=== PATIENT | female | born 1980 | race Caucasian/White ===

== ENCOUNTER 2018-10-01 10:03 | Day surgery (SDC) | payer BC ==
[~2018-10-01 10:03] MED LIST: Lactated Ringers 1,000 ML IV SCH; Sodium Chloride 0.9% 10 ML SDV IV PRN; Sodium Chloride 0.9% 10 ML Syringe FLUSH PRN; Sodium Chloride 0.9% 2.5 ML Syringe FLUSH PRN
[2018-10-01] MEDS ORDERED: Propofol 200 MG/20 ML SDV ONE ×2 (11:13→12:11)
[2018-10-01] MEDS ORDERED: Midazolam 1 MG/ML 2 ML SDV ONE (11:13)
[2018-10-01] MEDS ORDERED: fentaNYL 100 MCG/2 ML SDV ONE ×2 (11:13→12:45)
[2018-10-01] MEDS ORDERED: Ondansetron 4 MG/2 ML SDV ONE ×2 (11:14→13:00)
--- NOTE | 2018-10-01 12:01 | PCM.PREANE ---
Preanesthetic Assessment - Anesthesia/Transfusion/Family Hx Anesthesia History: Prior Anesthesia Without Reaction Family History of Anesthesia Reaction: No Transfusion History: No Prior Transfusion(s) Intubation History: Unknown - Review of Systems General: No Symptoms Pulmonary: No Symptoms Cardiovascular: No Symptoms Gastrointestinal: No Symptoms Neurological: No Symptoms Other: Reports: None - Physical Assessment O2 Sat by Pulse Oximetry: 96 Respiratory Rate: 16 Vital Signs: Last Vital Signs Temp 36.2 C 10/01/18 10:42 Pulse 68 10/01/18 10:42 Resp 16 10/01/18 10:42 BP 112/76 10/01/18 10:42 Pulse Ox 96 10/01/18 10:42 Height: 1.6 m Weight: 63.049 kg ASA Class: 1 Mental Status: Alert & Oriented x3 Airway Class: Mallampati = 1 Dentition: Reports: Normal Dentition Thyro-Mental Finger Breadths: 3 Mouth Opening Finger Breadths: 3 ROM/Head Extension: Full Lungs: Clear to Auscultation, Normal Respiratory Effort Cardiovascular: Regular Rate, Regular Rhythm - Lab Values: Laboratory Last Values WBC 7.01 K/uL (4.0-11.0) 10/01/18 11:00 RBC 4.72 M/uL (4.30-5.90) 10/01/18 11:00 Hgb 14.6 g/dL (12.0-16.0) 10/01/18 11:00 Hct 42.3 % (36.0-46.0) 10/01/18 11:00 MCV 89.6 fL (80.0-98.0) 10/01/18 11:00 MCH 30.9 pg (27.0-32.0) 10/01/18 11:00 MCHC 34.5 g/dL (31.0-37.0) 10/01/18 11:00 RDW Std Deviation 42.2 fl (28.0-62.0) 10/01/18 11:00 RDW Coeff of Hillary 13 % (11.0-15.0) 10/01/18 11:00 Plt Count 275 K/uL (150-400) 10/01/18 11:00 MPV 11.00 fL (7.40-12.00) 10/01/18 11:00 Neut % (Auto) 56.1 % (48.0-80.0) 10/01/18 11:00 Lymph % (Auto) 32.2 % (16.0-40.0) 10/01/18 11:00 [place] % (Auto) 7.6 % (0.0-15.0) 10/01/18 11:00 Eos % (Auto) 3.4 % (0.0-7.0) 10/01/18 11:00 Baso % (Auto) 0.7 % (0.0-1.5) 10/01/18 11:00 Neut # (Auto) 3.9 K/uL (1.4-5.7) 10/01/18 11:00 Lymph # (Auto) 2.3 K/uL (0.6-2.4) 10/01/18 11:00 [place] # (Auto) 0.5 K/uL (0.0-0.8) 10/01/18 11:00 Eos # (Auto) 0.2 K/uL (0.0-0.7) 10/01/18 11:00 Baso # (Auto) 0.1 K/uL (0.0-0.1) 10/01/18 11:00 Nucleated RBC % 0.0 /100WBC 10/01/18 11:00 Nucleated RBCs # 0 K/uL 10/01/18 11:00 - Allergies Allergies/Adverse Reactions: Allergies Allergy/AdvReac Type Severity Reaction Status Date / Time No Known Allergies Allergy Verified 09/25/18 09:22 - Blood Blood Available: No - Anesthesia Plan Pre-Op Medication Ordered: None - Acknowledgements Anesthesia Type Planned: MAC Pt an Appropriate Candidate for the Planned Anesthesia: Yes Alternatives and Risks of Anesthesia Discussed w Pt/Guardian: Yes Pt/Guardian Understands and Agrees with Anesthesia Plan: Yes PreAnesthesia Questionnaire HEENT History: Reports: None Cardiovascular History: Reports: None Respiratory History: Reports: None Gastrointestinal History: Reports: None Genitourinary History: Reports: None FLUTE GRINDER History: Reports: Musculoskeletal History: Reports: None Neurological History: Reports: Other (See Below) Other Neuro History: febrile seizures as a child Psychiatric History: Reports: Anxiety Endocrine/Metabolic History: Reports: None Hematologic History: Reports: None Immunologic History: Reports: None Oncologic (Cancer) History: Reports: None Dermatologic History: Reports: None - Past Surgical History Head Surgeries/Procedures: Reports: None HEENT Surgical History: Reports: Adenoidectomy, Oral Surgery, Tonsillectomy Cardiovascular Surgical History: Reports: None Respiratory Surgical History: Reports: None GI Surgical History: Reports: None Female Surgical History: Reports: D&C, Other (See Below) Other Female Surgeries/Procedures: ETOP Endocrine Surgical History: Reports: None Neurological Surgical History: Reports: None Musculoskeletal Surgical History: Reports: None Oncologic Surgical History: Reports: None Dermatological Surgical History: Reports: None Other Surgical History Comment: left wrist ganglion cyst - SUBSTANCE USE Smoking Status *Q: Former Smoker (quit 4 weeks ago) Tobacco Use Within Last Twelve Months: Cigarettes - HOME MEDS Home Medications: Home Meds . [No Known Home Meds] 09/25/18 [History] - CURRENT (IN HOUSE) MEDS Current Meds: Current Medications Lactated Ringer's (Ringers, Lactated) 1,000 mls @ 125 mls/hr IV ASDIRECTED JULI Sodium Chloride (Saline Flush) 10 ml FLUSH ASDIRECTED PRN PRN Reason: Keep Vein Open Sodium Chloride (Saline Flush) 2.5 ml FLUSH ASDIRECTED PRN PRN Reason: Keep Vein Open Sodium Chloride (Normal Saline) 10 ml IV ASDIRECTED PRN PRN Reason: IV Use Discontinued Medications Fentanyl (Sublimaze) Confirm Administered Dose 100 mcg .ROUTE .STK-MED ONE Stop: 10/01/18 11:14 Lidocaine HCl (Xylocaine-Mpf 1%) Confirm Administered Dose 5 mls @ as directed .ROUTE .STK-MED ONE Stop: 10/01/18 11:15 Midazolam HCl (Versed 1 Mg/Ml) Confirm Administered Dose 2 mg .ROUTE .STK-MED ONE Stop: 10/01/18 11:14 Ondansetron HCl (Zofran) Confirm Administered Dose 4 mg .ROUTE .STK-MED ONE Stop: 10/01/18 11:15 Propofol (Diprivan 20 Ml) Confirm Administered Dose 200 mg .ROUTE .STK-MED ONE Stop: 10/01/18 11:14
[2018-10-01] MEDS ORDERED: Meperidine PF 25 MG/ML Syringe IVPUSH ONE (12:51)
[2018-10-01] MEDS ORDERED: HYDROmorphone 2 MG/ML SDV IVPUSH ONE (12:51)
[2018-10-01] MEDS ORDERED: Promethazine 25 MG/ML SDV IM ONE (12:51)
[2018-10-01] MEDS ORDERED: fentaNYL 100 MCG/2 ML SDV IVPUSH PRN (12:51)
[2018-10-01] MEDS ORDERED: Ketorolac 30 MG/ML SDV ONE (13:00)
--- NOTE | 2018-10-01 13:15 | PCM.OPNOTE ---
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 Patient had minimal blood loss. Two pathology specimens were sent. <Jose Hardin - Last Filed: 10/02/18 03:24> - General Post-Op/Procedure Note Findings: EUA showed normal sized uterus. Cervix appeared partulous Free Text/Narrative:: Intake & Output 10/01/18 10/01/18 10/02/18 14:59 22:59 06:59 Intake Total 1600 Balance 1600
--- NOTE | 2018-10-01 14:17 | PCM48HPAN ---
Post Anesthesia Note - EVALUATION WITHIN 48HRS OF ANESTHETIC Vital Signs in Normal Range: Yes Patient Participated in Evaluation: Yes Respiratory Function Stable: Yes Airway Patent: Yes Cardiovascular Function Stable: Yes Hydration Status Stable: Yes Pain Control Satisfactory: Yes Nausea and Vomiting Control Satisfactory: Yes Mental Status Recovered: Yes Resp Rate: 16
--- NOTE | 2018-10-03 09:54 | OR ---
SURGEON: BALDO REAL DATE OF PROCEDURE: 10/01/2018 PREOPERATIVE DIAGNOSIS: A 38-year-old para 2,0,2,2 with TRELL II. POSTOPERATIVE DIAGNOSIS: A 38-year-old para 2,0,2,2 with TRELL II. PROCEDURE: LEEP procedure. FINDING: Normal size uterus and cervix also appearing normal. IV FLUID: 700. EBL: 50. ANESTHESIA: General LMA. PROCEDURE: The patient was taken to the operating room, where general anesthesia was performed without difficulty. The patient was prepared and draped in the dorsolithotomy position with the Anup stirrups. The plastic insulated speculum was used to expose the cervix. Lidocaine was injected into the cervix at 3 o'clock, 6 o'clock, and 5 o'clock position. Then, the loop electrode was used to get the specimen from the cervix, adequate specimen from the right to the left. Then, the bed of the cone was then coagulated with the ball electrode, and then Monsel's was placed for hemostasis. Prior to that, the ECC was done with the Kevorkian curette and then with the Cytobrush to collect the specimen. The specimen was tagged at 12 o'clock position with a stitch. All instrument and pad counts were correct x1. The patient tolerated the procedure well and was taken to the recovery room in stable condition. CHARITO MATSON /[id number]
== END 2018-10-01 14:37 | disposition home or self-care (01) ==
LOC: MW.SDS 10:03
PROVIDERS: ATTEND Obstetrics & Gynecology
DX: N87.1 Moderate cervical dysplasia (principal); Z87.891 Personal history of nicotine dependence
CPT/HCPCS: 36415; 57522; 84703; 85025; J1885; J2001; J2250; J2405; J2704; J3010; 88305; 88307

== ENCOUNTER 2022-02-12 17:42 | Inpatient (IN) | payer OTHER ==
[2022-02-12] MEDS ORDERED: Tranexamic Acid 1,000 MG in Sodium Chloride 0.9% 100 ML IV PRN (19:48)
[2022-02-12] MEDS ORDERED: Misoprostol 200 MCG Tab PO PRN (19:48)
[2022-02-12] MEDS ORDERED: Terbutaline 1 MG/ML SDV SUBCUT PRN (19:48)
[2022-02-12] MEDS ORDERED: Carboprost Tromethamine 250 MCG/1 ML Amp IM PRN (19:48)
[2022-02-12] MEDS ORDERED: Sodium Chloride 0.9% 10 ML Syringe FLUSH PRN (19:48)
[2022-02-12] MEDS ORDERED: Butorphanol 1 MG/ML SDV IVPUSH PRN (19:48)
[2022-02-12] MEDS ORDERED: Ondansetron 4 MG/2 ML SDV IVPUSH PRN (19:48)
[2022-02-12] MEDS ORDERED: Methylergonovine 0.2 MG/1 ML Amp IM PRN (19:48)
[2022-02-12] MEDS ORDERED: Ampicillin 2 GM in Sodium Chloride 0.9% 100 ML IV ONE (19:48)
[2022-02-12] MEDS ORDERED: Sodium Chloride 0.9% 2.5 ML Syringe FLUSH PRN (19:48)
[2022-02-12] MEDS ORDERED: Misoprostol 25 MCG (1/4 of 100 MCG) Tab VAG PRN ×2 (19:48)
[2022-02-12] MEDS ORDERED: Lidocaine 1% 50 ML MDV INJECT PRN (19:48)
[2022-02-12] MEDS ORDERED: Sodium Chloride 0.9% 20 ML SDV IV PRN (19:48)
[2022-02-12] MEDS ORDERED: Water For Irrigation,Sterile 1,000 ML Container IRR PRN (19:48)
[2022-02-12] MEDS ORDERED: Acetaminophen 500 MG Tab PO PRN (19:54)
[2022-02-12] MEDS ORDERED: Lactated Ringers 1,000 ML IV SCH (20:00)
[2022-02-12] MEDS ORDERED: Oxytocin/0.9 % Sodium Chloride 30 UNIT/500 ML BAG IV SCH ×2 (20:00)
[2022-02-12] MEDS: Calcium Carbonate 500 MG Tab.Chew PO PRN (20:58)
[2022-02-13] MEDS: Ampicillin 1 GM in Sodium Chloride 0.9% 50 ML IV SCH ×2 (01:14→05:48)
[2022-02-13] MEDS ORDERED: Phenylephrine HCl In 0.9% NaCl 1 MG/10 ML Vial ONE (05:27)
[2022-02-13] MEDS ORDERED: Lidocaine 2% with EPINEPHrine 1:200,000 20 ML SDV ONE (05:28)
[2022-02-13] MEDS ORDERED: Ropivacaine HCl/PF 400 MG in Premix Bag 1 BAG IV ONE (05:28)
[2022-02-13] MEDS ORDERED: ePHEDrine 50 MG/ML SDV IVPUSH PRN ×2 (05:41)
[2022-02-13] MEDS ORDERED: Ropivacaine HCl/PF 400 MG in Premix Bag 1 BAG EPIDUR SCH (05:45)
[2022-02-13] MEDS: Calcium Carbonate 500 MG Tab.Chew PO PRN (05:58)
[2022-02-13] MEDS ORDERED: Famotidine 20 MG Tab PO PRN (07:15)
[2022-02-13] MEDS ORDERED: Methylergonovine 0.2 MG/1 ML Amp IM PRN (07:15)
[2022-02-13] MEDS ORDERED: Docusate Sodium 100 MG Cap PO PRN (07:15)
[2022-02-13] MEDS ORDERED: Tranexamic Acid 1,000 MG in Sodium Chloride 0.9% 100 ML IV PRN (07:15)
[2022-02-13] MEDS ORDERED: Ibuprofen 400 MG Tab PO PRN (07:15)
[2022-02-13] MEDS ORDERED: Lanolin 100% Cream 7 GM Tube TOP PRN (07:15)
[2022-02-13] MEDS ORDERED: Aluminum Hydroxide/Magnesium Hydroxide/Simethicone XS Susp 30 ML Cup PO PRN (07:15)
[2022-02-13] MEDS ORDERED: Benzocaine/Menthol 20%-0.5% Spray 78 GM Cannister TOP PRN (07:15)
[2022-02-13] MEDS ORDERED: Bisacodyl 10 MG Supp RECTAL PRN (07:15)
[2022-02-13] MEDS ORDERED: Witch Hazel Medicated Pads 40/Jar TOP PRN (07:15)
[2022-02-13] MEDS: Acetaminophen 500 MG Tab PO PRN ×4 (09:41→22:17)
[2022-02-13] MEDS: Ibuprofen 800 MG Tab PO PRN ×2 (09:41→16:54)
[2022-02-13] MEDS: Phenylephrine HCl In 0.9% NaCl 1 MG/10 ML Vial IVPUSH SCH (22:08)
[2022-02-14] MEDS: Ibuprofen 800 MG Tab PO PRN ×2 (00:16→06:44)
[2022-02-14] MEDS: Acetaminophen 500 MG Tab PO PRN ×2 (04:06→09:18)
== END 2022-02-14 12:43 | disposition home or self-care (01) | DRG 805 ==
LOC: MW.OBCHECK 17:42 → MW.OB 17:42 → MW.OBCHECK 19:48 → MW.OB 19:49 → OBSVTOIN 02-13 06:53 → MW.OB 02-13 10:55
PROVIDERS: ADMIT Obstetrics & Gynecology; ATTEND Obstetrics & Gynecology
PROC: 10E0XZZ Delivery of Products of Conception, External Approach (ICD-10-PCS; principal; 2022-02-13)
PROC: 3E0P7VZ Introduction of Hormone into Female Reproductive, Via Natural or Artificial Opening (ICD-10-PCS; 2022-02-13)
PROC: 10907ZC Drainage of Amniotic Fluid, Therapeutic from Products of Conception, Via Natural or Artificial Opening (ICD-10-PCS; 2022-02-13)
PROC: 3E0R3BZ Introduction of Anesthetic Agent into Spinal Canal, Percutaneous Approach (ICD-10-PCS; 2022-02-13)
PROC: 00HU33Z Insertion of Infusion Device into Spinal Canal, Percutaneous Approach (ICD-10-PCS; 2022-02-13)
DX: O99.824 Streptococcus B carrier state complicating childbirth (principal); U07.1 COVID-19; Z37.0 Single live birth; O98.52 Other viral diseases complicating childbirth; Z3A.41 41 weeks gestation of pregnancy; O69.81X0 Labor and delivery complicated by cord around neck, without compression, not applicable or unspecified; O48.0 Post-term pregnancy; O76 Abnormality in fetal heart rate and rhythm complicating labor and delivery
CPT/HCPCS: 01967; 36415; 59025; 59409; 82803; 85014; 85018; 85027; 86592; 86850; 86900; 86901; A9270-GY; J0290; J0595; J2795; J7120; U0002